=== PATIENT | female | born 1935 | race Caucasian/White ===

== ENCOUNTER 2020-09-15 07:47 | Outpatient (CLI) | payer MEDICARE, SELFPAY ==
--- NOTE | 2020-09-15 07:57 | USCV_ITS ---
Gibson Guillen Age: 85 Gender: F : 1935 Exam Date: 09/15/2020 08:12 Ordering Phys: Thomas Philippe MD Technologist: Mia Campos [place] [facility] [place]: MUR[place]UR BP: 140 / 60 HR: 64 Rhythm: Sinus Technical Quality: Technically difficult study MEASUREMENTS (Male / Female) Normal Values 2D ECHO LV Diastolic Diameter PLAX 3.1 cm 4.2 - 5.9 / 3.9 - 5.3 cm LV Systolic Diameter PLAX 1.7 cm IVS Diastolic Thickness 1.3 cm 0.6 - 1.0 / 0.6 - 0.9 cm IVS Systolic Thickness 1.9 cm LVPW Diastolic Thickness 1.5 cm 0.6 - 1.0 / 0.6 - 0.9 cm LVPW Systolic Thickness 2.2 cm LVOT Diameter 2.0 cm LV Ejection Fraction 2D Teich 76.7 % LV Ejection Fraction MOD 2C 71.1 % LV Ejection Fraction 2C AL 71.1 % LA Diameter 3.5 cm LA Width 3.1 cm LA Height 3.0 cm RA Width 3.0 cm RA Height 3.3 cm Aorta at Sinotubular Diameter 2.8 cm DOPPLER AV Peak Velocity 141.0 cm/s LVOT Peak Velocity 135.0 cm/s AV Area Cont Eq vti 2.8 cm squared AV Area Cont Eq pk 3.0 cm squared MV Peak Velocity 156.0 cm/s MV Area PHT 2.2 cm squared Mitral E to A Ratio 0.6 MV E' Velocity 47.0 cm/s Mitral E to MV E' Ratio 14.2 Mitral E to LV E' Lateral Ratio 19.4 Mitral E to LV E' Septal Ratio 11.3 TR Peak Velocity 212.8 cm/s TR Peak Gradient 18.1 mmHg TR Mean Velocity 151.4 cm/s TR Mean Gradient 10.2 mmHg TR Velocity Time Integral 57.4 cm Right Atrial Pressure 3.0 mmHg Pulmonary Artery Systolic Pressu 21.1 mmHg PV Peak Velocity 123.0 cm/s RV Acceleration Time 0.2 s RV Ejection Time 0.3 s RV AcT/ET 0.5 FINDINGS Left Ventricle Normal left ventricular cavity size. Normal left ventricular systolic function. Left ventricular ejection fraction is estimated at 55%. Grade I/IV diastolic dysfunction (abnormal relaxation filling pattern), normal to mildly elevated filling pressures. Right Ventricle Right ventricle not well visualized. RVSP could not be calculated due to incomplete tricuspid regurgitation velocity profile. Right Atrium Right atrium not well visualized. Left Atrium The left atrium is normal in size. Mitral Valve Severely thickened mitral valve. Severe mitral annular calcification. No mitral valve stenosis. Trace mitral valve regurgitation. Aortic Valve Severe aortic valve calcification. Mild aortic valve stenosis, mean gradient 5.2 mmHg, PATRICIA 2.8 cm squared. No aortic valve regurgitation. Tricuspid Valve Tricuspid valve not well visualized. Pulmonic Valve Pulmonic valve not well visualized. Pericardium Normal pericardium without effusion. Aorta Normal ascending aorta dimension. CONCLUSIONS 1-Normal left ventricular cavity size. Normal left ventricular systolic function. Left ventricular ejection fraction is estimated at 55%. Grade I/IV diastolic dysfunction (abnormal relaxation filling pattern), normal to mildly elevated filling pressures. 2-Right ventricle not well visualized. RVSP could not be calculated due to incomplete tricuspid regurgitation velocity profile. 3-Severely thickened mitral valve. Severe mitral annular calcification. No mitral valve stenosis. Trace mitral valve regurgitation. 4-Severe aortic valve calcification. Mild aortic valve stenosis, mean gradient 5.2 mmHg, PATRICIA 2.8 cm squared. No aortic valve regurgitation. 5-There is no pericardial effusion. 6-There are no prior echocardiogram studies to compare. Kristian Ac MD (Electronically Signed) Final Date: 16 September 2020 22:20 S
== END 2020-09-15 07:48 | disposition home or self-care (01) ==
PROVIDERS: PCP Family Medicine; Visit Provider Family Medicine
DX: R01.1 Cardiac murmur, unspecified (principal); I08.0 Rheumatic disorders of both mitral and aortic valves
CPT/HCPCS: 93306

== ENCOUNTER 2022-05-20 21:38 | Emergency (ER) | payer MEDICARE, SELFPAY ==
[2022-05-20] VITALS (10 sets, daily range): BP systolic 151–193; BP diastolic 79–131; PULSE 79–98; RESP 16–25; TEMP 37.1; O2SAT 95–99; BMI 21.6
--- NOTE | 2022-05-20 21:47 | ECG_ITS ---
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 Measurements Intervals [place] Rate: 85 P: 147 IL: 236 QRS: -30 QRSD: 121 T: 153 QT: 411 QTc: 490 Interpretive Statements SINUS RHYTHM WITH FIRST DEGREE AV BLOCK LEFT ATRIAL ENLARGEMENT [-0.15mV P-WAVE IN V1/V2] BORDERLINE LEFT AXIS DEVIATION [QRS AXIS < -20] POSSIBLE RIGHT VENTRICULAR CONDUCTION DELAY [RSR (QR) IN V1/V2] POSSIBLE LEFT VENTRICULAR HYPERTROPHY [VOLTAGE CRITERIA PLUS LAE OR QRS WIDENING] ST DEVIATION AND MARKED T-WAVE ABNORMALITY, CONSIDER LATERAL ISCHEMIA [-0.5+ mV T-WAVE IN I/aVL/V5/V6] Compared to ECG 05/02/2018 19:37:20 Ectopic atrial rhythm now present Incomplete right bundle-branch block no longer present Left anterior fascicular block no longer present ST (T wave) deviation no longer present Myocardial infarct finding no longer present Electronically Signed On 05-20-2022 23:38:56 CDT by Raulito Robert M.D. [id number]
[2022-05-20 21:59] LABS: Basophils % 0.3 %; Eosinophils # 0.1 10^3/uL (0.0-0.8); Eosinophils % 0.5 %; Hematocrit 44.1 % (37.0-47.0); Lymphocytes # 1.2 10^3/uL (0.8-4.8); Lymphocytes % 11.2 %; Mean Corpuscular HGB Conc 31.7 g/dL (30.0-36.0); Mean Corpuscular Hemoglobin 25.5 pg (28.0-34.0); Mean Corpuscular Volume 80.5 fl (81-99); Mean Platelet Volume 11.7 fL (7.4-10.4); Monocytes # 0.4 10^3/uL (0.2-0.9); Monocytes % 4.1 %; Neutrophils # 8.67 10^3/uL (1.8-7.7); Neutrophils % 83.3 %; Nucleated Red Blood Cells % 0 %; Platelet Count 223 10^3/cmm (130-400); Red Blood Count 5.48 10^6/uL (4.1-5.3); Red Cell Distribution Width 15.3 % (12.1-15.1); White Blood Count 10.4 10^3/uL (4.0-10.0)
[2022-05-20] MEDS: sodium chloride 0.9% 1,000 ML 999 ML IV (22:01)
[2022-05-20] MEDS: ondansetron 2 mg/ML SDV 2 mL 4 MG IVP (22:01)
--- NOTE | 2022-05-20 22:01 | ED_ITS ---
HPI - Nausea/Vomiting/Diarrhea General: Chief complaint: Nausea/Vomiting/Diarrhea Stated complaint: N/V Time Seen by Provider: 05/20/22 21:42 Source: patient and EMS Mode of arrival: EMS Limitations: no limitations History of Present Illness: 87-year-old female who states she has been sick throughout the day states she had multiple episodes of nausea vomiting with some burning in her upper abdomen she denies any actual pain she states it last when she vomits. States she is feeling weak due to the vomiting denies any diarrhea she denies any worsening or improving factors. Associated nausea: Yes Associated symtoms: Reports nausea; Denies chest pain, dysuria or headache(s) Review of Systems Const: Denies: fever(s), chills, body aches or change in appetite Eyes: Denies: blurry vision or eye discomfort ENMT: Denies: throat pain or dental pain Card: Denies: chest pain Resp: Denies: dyspnea GI: Reports: nausea and vomiting : Denies: dysuria Musc: Denies: neck pain or back pain Skin/Breast: Denies: rash Neuro: Denies: headache(s) Psych: Denies: depression Sincere/Lymph: Denies: easy bruising All/Imm: Denies: urticaria PFSH ED PFSH: Social History (Updated 05/20/22 @ 22:01 by Rock Matt MD) Substance/Drug Use: never Physical Exam Const: COMMON NORMALS: no acute distress, patient oriented x3 and healthy appearing HENMT: COMMON NORMALS: normocephalic and atraumatic HEAD & SCALP: normocephalic and atraumatic Eye: COMMON NORMALS: Equal, round and reactive pupils present and EOMs intact bilaterally PUPIL: Yes Equal, round and reactive pupils present Neck/C-Spine: COMMON NORMALS: full ROM and supple Chest: COMMONS NORMALS: normal inspection of the chest and normal palpation of entire chest wall Resp: COMMON NORMALS: normal respiratory effort, No retractions, No use of accessory muscles and clear to auscultation bilaterally AUSCULTATION: clear to auscultation bilaterally Cardio: COMMON NORMALS: regular rate, regular rhythm and No murmurs present (Cardio) RATE: regular rate RHYTHM: regular rhythm GI: COMMON NORMALS: Normal to inspection, nondistended, normoactive bowel sounds present, Soft to palpation, non-tender and no masses PALPATION: Yes Soft to palpation Extremity: COMMON NORMALS: normal to inspection and full ROM Neuro: COMMON NORMALS: patient oriented x3, moves all extremities and no focal motor deficits Psych: COMMON NORMALS: mental status grossly normal, Normal thought process present and cooperative THOUGHT PROCESS: Normal thought process present Skin: COMMON NORMALS: no rashes or lesions noted and no wounds GENERAL SKIN EXAM: no rashes or lesions noted Course Vital Signs: Vital signs: Vital Signs Temperature 98.7 F 05/20/22 21:42 Pulse Rate 83 05/20/22 22:42 Respiratory Rate 20 H 05/20/22 22:42 Blood Pressure 158/79 05/20/22 22:42 Pulse Oximetry 97 05/20/22 22:42 Oxygen Delivery Me thod 05/20/22 21:42 MDM - Nausea/Vomiting/Diarrhea Medical Decision Making Patient presents here with vomiting she feels much improved here after Zofran she been able to tolerate liquids and fluids blood work here is all normal she is stable for discharge at this time her abdominal exam here is benign no signs of acute surgical abdomen she is to follow-up with her PCP and return if worsening. Lab Data 05/20/22 21:54 05/20/22 21:54 Radiology Impressions Chest X-Ray 05/20/22 22:03 IMPRESSION: No acute findings. Laboratory Results WBC 10.4 10^3/uL (4.0-10.0) H 05/20/22 21:54 RBC 5.48 10^6/uL (4.1-5.3) H 05/20/22 21:54 Hgb 14.0 g/dL (11.5-15.3) 05/20/22 21:54 Hct 44.1 % (37.0-47.0) 05/20/22 21:54 MCV 80.5 fl (81-99) L 05/20/22 21:54 MCH 25.5 pg (28.0-34.0) L 05/20/22 21:54 MCHC 31.7 g/dL (30.0-36.0) 05/20/22 21:54 RDW 15.3 % (12.1-15.1) H 05/20/22 21:54 Plt Count 223 10^3/cmm (130-400) 05/20/22 21:54 MPV 11.7 fL (7.4-10.4) H 05/20/22 21:54 Neut % (Auto) 83.3 % 05/20/22 21:54 Lymph % (Auto) 11.2 % 05/20/22 21:54 [place] % (Auto) 4.1 % 05/20/22 21:54 Eos % (Auto) 0.5 % 05/20/22 21:54 Baso % (Auto) 0.3 % 05/20/22 21:54 Neut # (Auto) 8.67 10^3/uL (1.8-7.7) H 05/20/22 21:54 Lymph # (Auto) 1.2 10^3/uL (0.8-4.8) 05/20/22 21:54 [place] # (Auto) 0.4 10^3/uL (0.2-0.9) 05/20/22 21:54 Eos # (Auto) 0.1 10^3/uL (0.0-0.8) 05/20/22 21:54 Baso # (Auto) 0.0 10^3/uL (0.0-0.1) 05/20/22 21:54 Nucleated RBC % (auto) 0 % 05/20/22 21:54 Nucleated RBCs # 0.0 /100WBC 05/20/22 21:54 Sodium 127 mmol/L (136-145) L 05/20/22 21:54 Potassium 4.2 mmol/L (3.5-5.1) 05/20/22 21:54 Chloride 86 mmol/L (98-107) L 05/20/22 21:54 Carbon Dioxide 26 mmol/L (22-29) 05/20/22 21:54 Anion Gap 19.2 (5-19) H 05/20/22 21:54 BUN 17 mg/dL (8-23) 05/20/22 21:54 Creatinine 1.1 mg/dL (0.5-0.9) H 05/20/22 21:54 GFR Calculation Not Reportable 05/20/22 21:54 Glucose 143 mg/dL (65-115) H 05/20/22 21:54 Calculated Osmolality 268 mOsm/kg (285-295) L 05/20/22 21:54 Calcium 10.6 mg/dL (8.5-10.5) H 05/20/22 21:54 Total Bilirubin 0.5 mg/dL (0.15-1.2) 05/20/22 21:54 AST 26 U/L (0-32) 05/20/22 21:54 ALT 11 U/L (0-33) 05/20/22 21:54 Alkaline Phosphatase 82 U/L (35-105) 05/20/22 21:54 Total Protein 8.4 g/dL (6.6-8.7) 05/20/22 21:54 Albumin 4.7 g/dL (3.5-5.2) 05/20/22 21:54 Globulin 3.7 g/dL (1.3-4.6) 05/20/22 21:54 Lipase 34 U/L (13-60) 05/20/22 21:54 Urine Color Light yellow (Yellow) 05/20/22 22:50 Urine Appearance Clear (CLEAR) 05/20/22 22:50 Urine pH 8 (5-7) H 05/20/22 22:50 Ur Specific [place] 1.015 (1.005-1.030) 05/20/22 22:50 Urine Protein Neg (Negative) 05/20/22 22:50 Urine Glucose (UA) Norm (Normal) 05/20/22 22:50 Urine Ketones Negative (Negative) 05/20/22 22:50 Urine Blood Neg (Negative) 05/20/22 22:50 Urine Nitrate Negative (Negative) 05/20/22 22:50 Urine Bilirubin Neg (Negative) 05/20/22 22:50 Prot Sulfosalicylic Acd Negative (Negative) 05/20/22 22:50 Urine Urobilinogen Neg mg/dL (Negative) 05/20/22 22:50 Ur Leukocyte Esterase Negative (Negative) 05/20/22 22:50 Discharge Plan Discharge Patient Disposition: Home Clinical Impression: Vomiting Prescriptions: New ondansetron 4 mg tablet,disintegrating 4 mg PO Q6H PRN (Reason: nausea and vomiting) Qty: 14 0RF Discharge Orders: Discharge ED (Routine); Ordered 05/20/22 Ordered By: Rock Matt Referrals: Thomas Philippe MD [Primary Care Provider] - 1-3 days Discharge Diet: Advance as tolerated Discharge Activity: Resume usual activity Patient Instructions: Acute Nausea and Vomiting (ED) Coding Level of Care Code ED Instructional Design Specialist for Esteban Miller
--- NOTE | 2022-05-20 22:03 | XRR_ITS ---
PROCEDURE INFORMATION: Exam: XR Chest Exam date and time: 05/20/2022 10:07 PM Age: 87 years old Clinical indication: Other: Vomitting; Additional info: Vomiting TECHNIQUE: Imaging protocol: Radiologic exam of the chest. Views: 1 view. COMPARISON: CR XR chest 2V* [id number] 06/04/2020 12:26 PM FINDINGS: Tubes, catheters and devices: Stimulator lead unchanged over the midthoracic spine. Lungs: Minimal atelectasis in the left lung base. The lungs are otherwise clear. Pleural spaces: Unremarkable. No pleural effusion. No pneumothorax. Heart/Mediastinum: Unremarkable. No cardiomegaly. Diaphragm: Mild chronic elevation of the left diaphragm. Bones/joints: Thoracolumbar scoliosis. C-spine fusion hardware. Degenerative right shoulder. XR/XR chest 1V portable [id number] IMPRESSION: No acute findings.
[2022-05-20 22:18] LABS: Alanine Aminotransferase 11 U/L (0-33); Albumin Level 4.7 g/dL (3.5-5.2); Alkaline Phosphatase 82 U/L (35-105); Anion Gap 19.2 (5-19); Aspartate Amino Transferase 26 U/L (0-32); Blood Urea Nitrogen 17 mg/dL (8-23); Calcium 10.6 mg/dL (8.5-10.5); Carbon Dioxide 26 mmol/L (22-29); Chloride 86 mmol/L (98-107); Globulin 3.7 g/dL (1.3-4.6); Glucose 143 mg/dL (65-115); Lipase 34 U/L (13-60); Osmolality Calculated 268 mOsm/kg (285-295); Potassium 4.2 mmol/L (3.5-5.1); Sodium 127 mmol/L (136-145); Total Bilirubin 0.5 mg/dL (0.15-1.2); Total Protein 8.4 g/dL (6.6-8.7)
[2022-05-20 22:58] LABS: Add Urine Microscopic? NO; Charge for UA Resulting for Rev
[2022-05-20 23:03] LABS: Bilirubin Urine Neg (Negative); Blood Urine Neg (Negative); Glucose Urine UA Norm (Normal); Ketones Urine Negative (Negative); Leukocyte Esterase Urine Negative (Negative); Nitrate Urine Negative (Negative); Protein Urine Neg (Negative); Specific Gravity, Urine 1.015 (1.005-1.030); Sulfosalicylic Acid Urine Negative (Negative); Urine Appearance Clear (CLEAR); Urine Color Light yellow (Yellow); Urobilinogen Urine Neg (Negative); pH Urine 8 (5-7)
[2022-05-20] MEDS: hyDRALAzine 20 mg/mL INJ 1 mL 10 MG IVP (23:09)
[2022-05-20] MEDS: HYDROcodone-acetaminophen 7.5-325 mg Tablet 1 TAB PO (23:35)
[2022-05-20] MEDS: ondansetron 4 MG Tablet PO (23:35)
== END 2022-05-20 23:43 | disposition home or self-care (01) ==
PROVIDERS: Emergency Provider Emergency Medicine; PCP Family Medicine
DX: R11.11 Vomiting without nausea (principal)
CPT/HCPCS: 71045; 80053; 81003; 83690; 85025; 93005; 96374; 96375; 99285; J0360; J2405; J7030; Q0162

== ENCOUNTER 2022-05-29 16:16 | Inpatient (IN) | payer MEDICARE, SELFPAY ==
[2022-05-29 16:21] VITALS: PULSE 76; TEMP 36.6; O2SAT 97; BMI 21.6
[2022-05-29 17:21] LABS: Basophils # 0.1 10^3/uL (0.0-0.1); Basophils % 0.5 %; Eosinophils # 0.2 10^3/uL (0.0-0.8); Eosinophils % 1.7 %; Hematocrit 39.7 % (37.0-47.0); Hemoglobin 12.4 g/dL (11.5-15.3); Lymphocytes # 1.4 10^3/uL (0.8-4.8); Lymphocytes % 14.3 %; Mean Corpuscular HGB Conc 31.2 g/dL (30.0-36.0); Mean Corpuscular Hemoglobin 25.6 pg (28.0-34.0); Mean Platelet Volume 10.9 fL (7.4-10.4); Monocytes # 1.1 10^3/uL (0.2-0.9); Monocytes % 10.8 %; Neutrophils # 7.13 10^3/uL (1.8-7.7); Neutrophils % 71.6 %; Nucleated Red Blood Cells % 0 %; Platelet Count 227 10^3/cmm (130-400); Red Blood Count 4.84 10^6/uL (4.1-5.3); Red Cell Distribution Width 15.5 % (12.1-15.1)
[2022-05-29 17:55] LABS: Alanine Aminotransferase 16 U/L (0-33); Albumin Level 4.1 g/dL (3.5-5.2); Alkaline Phosphatase 80 U/L (35-105); Anion Gap 14.1 (5-19); Aspartate Amino Transferase 29 U/L (0-32); Blood Urea Nitrogen 22 mg/dL (8-23); Calcium 9.2 mg/dL (8.5-10.5); Carbon Dioxide 29 mmol/L (22-29); Chloride 85 mmol/L (98-107); Glucose 94 mg/dL (65-115); Lipase 30 U/L (13-60); Osmolality Calculated 261 mOsm/kg (285-295); Potassium 4.1 mmol/L (3.5-5.1); Sodium 124 mmol/L (136-145); Total Bilirubin 0.3 mg/dL (0.15-1.2); Total Protein 7.1 g/dL (6.6-8.7)
--- NOTE | 2022-05-29 18:50 | CTR_ITS ---
PROCEDURE INFORMATION: Exam: CT Abdomen And Pelvis With Contrast Exam date and time: 05/29/2022 7:07 PM Age: 87 years old Clinical indication: Abdominal pain; Patient HX: PT C/O low abd pain with diarrhea x 1 week; Additional info: Abd pain diarrhea TECHNIQUE: Imaging protocol: Computed tomography of the abdomen and pelvis with contrast. Radiation optimization: All CT scans at this facility use at least one of these dose optimization techniques: automated exposure control; mA and/or kV adjustment per patient size (includes targeted exams where dose is matched to clinical indication); or iterative reconstruction. Contrast material: OMNI 350; Contrast volume: 75 ml; Contrast route: INTRAVENOUS (IV); REPORTING DATA: Count of CT and Cardiac NM exams in prior 12 months: This patient has received 0 known CTs and 0 known cardiac nuclear medicine studies in the 12 months prior to the current study. COMPARISON: CR (CHEST, ) 05/20/2022 10:07 PM RADIATION DOSE METRICS: Total DLP (mGy-cm): 383.27 FINDINGS: Tubes, catheters and devices: A stimulator device is implanted in the subcutaneous soft tissues of the left lower lumbar region with leads extending posterior to the thoracic canal. Lungs: There are chronic changes at the lung bases. Liver: Normal. No mass. Gallbladder and bile ducts: Gallbladder is compressed in regions by adjacent stool filled large bowel loops. Pancreas: Normal. No ductal dilation. Spleen: Normal. No splenomegaly. Adrenal glands: Normal. No mass. Kidneys and ureters: Normal. No hydronephrosis. Stomach and bowel: Colonic constipation is present. There is a large amount of stool in the rectal vault raising concern for fecal impaction. Rectal mucosal thickening. Appendix: No evidence of appendicitis. Intraperitoneal space: Unremarkable. No free air. No significant fluid collection. Vasculature: There are calcifications in the aortic and mitral valves. Multi-vessel atherosclerotic disease. Lymph nodes: Unremarkable. No enlarged lymph nodes. Urinary bladder: Unremarkable as visualized. Reproductive: Unremarkable as visualized. Bones/joints: There are severe degenerative changes in the visualized spine. Chronic appearing compression deformities of the T12 and L1 vertebra. There is a transitional lumbosacral vertebra designated S1 for the purposes of this study. Status post right total hip replacement. There is resultant artifact obscuring adjacent structures. Moderate lower thoracic/upper lumbar levoscoliosis. Soft tissues: Unremarkable. CT/CT abdomen pelvis w con* [id number] IMPRESSION: 1. Colonic constipation with possible fecal impaction. 2. Rectal mucosal thickening. This can be seen with a nonspecific proctitis. Follow-up to exclude neoplasm as clinically warranted.
--- NOTE | 2022-05-29 18:50 | ED_ITS ---
HPI - Nausea/Vomiting/Diarrhea General: Chief complaint: Nausea/Vomiting/Diarrhea Stated complaint: abd pains Time Seen by Provider: 05/29/22 18:40 History of Present Illness: 87-year-old female seen a week ago for vomiting and diarrhea. Vomiting has resolved, but she is continued to have diarrhea. She has some left lower quadrant pain as well. No fever. She has some blood mixed in with the stool, because she says her hemorrhoids have been inflamed due to all the diarrhea. S he has a rash as well. She says that she gets cramping abdominal pain, and cannot control her bowels. Only belly surgery history is a hysterectomy years ago. MD elicited complaint: nausea, diarrhea and abdominal pain Pertinent past history: other Onset (ago): day(s) Description of vomiting: other Description of diarrhea: watery Associated nausea: Yes Associated abdominal pain: Yes Location of pain: Diffuse Radiation: other Pain consistency: intermittent Severity: moderate Quality: cramping Associated symtoms: Reports fatigue, anorexia, nausea and weakness (generalized); Denies altered mental status, chest pain, fevers/chills or headache(s) Review of Systems Const: Reports: fatigue Card: Denies: chest pain Resp: Denies: dyspnea, productive cough or non-productive cough GI: Reports: abdominal pain and nausea; Denies: melena Neuro: Denies: headache(s) Physical Exam Const: EXAM LIMITATIONS: no altered mental status HENMT: COMMON NORMALS: normocephalic and atraumatic HEAD & SCALP: normocephalic and atraumatic Eye: COMMON NORMALS: Equal, round and reactive pupils present and EOMs intact bilaterally PUPIL: Yes Equal, round and reactive pupils present Neck/C-Spine: GENERAL: Yes trachea midline Chest: CHEST: Yes Symmetrical chest wall rise Resp: COMMON NORMALS: normal respiratory effort, No use of accessory muscles and clear to auscultation bilaterally AUSCULTATION: clear to auscultation bilaterally Cardio: COMMON NORMALS: regular rate and regular rhythm RATE: regular rate RHYTHM: regular rhythm HEART SOUNDS: Murmur heart sound present GI: COMMON NORMALS: Normal to inspection, nondistended, normoactive bowel sounds present PALPATION: Yes Tenderness to palpation present (GI) Details: LLQ Extremity: NARRATIVE EXTREMITY EXAM: Ecchymosis with cyanosis of multiple toes bilaterally consistent with vascular disease. This is chronic. Neuro: ARTHUR COMA SCALE: document GCS findings [place] coma scale eye opening: Spontaneous [place] coma scale verbal response: Orientated [place] coma scale motor response: Obey commands Arthur coma scale total score: 15 Psych: COMMON NORMALS: mental status grossly normal and cooperative Procedures Rectal Disimpaction Time out performed rectal disimpaction: No Indication: fecal impaction Procedural Sedation: No Sedation/Analgesia: opioids Technique: manual disimpaction with gloved finger Result: unable to disimpact Patient Tolerated Procedure: well and no complications Complications: none Course Vital Signs: Vital signs: Vital Signs Temperature 97.9 F 05/29/22 16:21 Pulse Rate 81 05/29/22 19:30 Respiratory Rate 14 05/29/22 20:55 Blood Pressure 158/71 05/29/22 19:30 Pulse Oximetry 96 05/29/22 20:55 Oxygen Delivery Me thod Room Air 05/29/22 19:30 MDM - Nausea/Vomiting/Diarrhea Medical Decision Making Vitals are stable. CBC is normal. Sodium is 124 which is less than last week. Creatinine is 1.2. CT shows colonic constipation with fecal impaction and rectal mucosal thickening indicative of proctitis. Rectal disimpaction was performed, with minimal stool output. The patient tolerated well without com plication, however I would be unsuccessful. Stool felt on exam was soft. She will need repeated enemas for disimpaction given her proctitis. Stool studies will be sent for C. difficile and other enteric bacteria by PCR. Spoke with hospitalist. She will be admitted. Lab Data 05/29/22 17:13 05/29/22 17:13 Radiology Impressions Abdomen/Pelvis CT 05/29/22 18:50 IMPRESSION: 1. Colonic constipation with possible fecal impaction. 2. Rectal mucosal thickening. This can be seen with a nonspecific proctitis. Follow-up to exclude neoplasm as clinically warranted. Laboratory Results WBC 10.0 10^3/uL (4.0-10.0) 05/29/22 17:13 RBC 4.84 10^6/uL (4.1-5.3) 05/29/22 17:13 Hgb 12.4 g/dL (11.5-15.3) 05/29/22 17:13 Hct 39.7 % (37.0-47.0) 05/29/22 17:13 MCV 82.0 fl (81-99) 05/29/22 17:13 MCH 25.6 pg (28.0-34.0) L 05/29/22 17:13 MCHC 31.2 g/dL (30.0-36.0) 05/29/22 17:13 RDW 15.5 % (12.1-15.1) H 05/29/22 17:13 Plt Count 227 10^3/cmm (130-400) 05/29/22 17:13 MPV 10.9 fL (7.4-10.4) H 05/29/22 17:13 Neut % (Auto) 71.6 % 05/29/22 17:13 Lymph % (Auto) 14.3 % 05/29/22 17:13 [place] % (Auto) 10.8 % 05/29/22 17:13 Eos % (Auto) 1.7 % 05/29/22 17:13 Baso % (Auto) 0.5 % 05/29/22 17:13 Neut # (Auto) 7.13 10^3/uL (1.8-7.7) 05/29/22 17:13 Lymph # (Auto) 1.4 10^3/uL (0.8-4.8) 05/29/22 17:13 [place] # (Auto) 1.1 10^3/uL (0.2-0.9) H 05/29/22 17:13 Eos # (Auto) 0.2 10^3/uL (0.0-0.8) 05/29/22 17:13 Baso # (Auto) 0.1 10^3/uL (0.0-0.1) 05/29/22 17:13 Nucleated RBC % (auto) 0 % 05/29/22 17:13 Nucleated RBCs # 0.0 /100WBC 05/29/22 17:13 Sodium 124 mmol/L (136-145) L 05/29/22 17:13 Potassium 4.1 mmol/L (3.5-5.1) 05/29/22 17:13 Chloride 85 mmol/L (98-107) L 05/29/22 17:13 Carbon Dioxide 29 mmol/L (22-29) 05/29/22 17:13 Anion Gap 14.1 (5-19) 05/29/22 17:13 BUN 22 mg/dL (8-23) 05/29/22 17:13 Creatinine 1.2 mg/dL (0.5-0.9) H 05/29/22 17:13 GFR Calculation Not Reportable 05/29/22 17:13 Glucose 94 mg/dL (65-115) 05/29/22 17:13 Calculated Osmolality 261 mOsm/kg (285-295) L 05/29/22 17:13 Calcium 9.2 mg/dL (8.5-10.5) 05/29/22 17:13 Total Bilirubin 0.3 mg/dL (0.15-1.2) 05/29/22 17:13 AST 29 U/L (0-32) 05/29/22 17:13 ALT 16 U/L (0-33) 05/29/22 17:13 Alkaline Phosphatase 80 U/L (35-105) 05/29/22 17:13 Total Protein 7.1 g/dL (6.6-8.7) 05/29/22 17:13 Albumin 4.1 g/dL (3.5-5.2) 05/29/22 17:13 Globulin 3.0 g/dL (1.3-4.6) 05/29/22 17:13 Lipase 30 U/L (13-60) 05/29/22 17:13 Urine Color Colorless (Yellow) 05/29/22 19:30 Urine Appearance Clear (CLEAR) 05/29/22 19:30 Urine pH 7 (5-7) 05/29/22 19:30 Ur Specific [place] 1.005 (1.005-1.030) 05/29/22 19:30 Urine Protein Neg (Negative) 05/29/22 19:30 Urine Glucose (UA) Norm (Normal) 05/29/22 19:30 Urine Ketones Negative (Negative) 05/29/22 19:30 Urine Blood Neg (Negative) 05/29/22 19:30 Urine Nitrate Negative (Negative) 05/29/22 19:30 Urine Bilirubin Neg (Negative) 05/29/22 19:30 Urine Urobilinogen Norm mg/dL (Negative) 05/29/22 19:30 Ur Leukocyte Esterase Negative (Negative) 05/29/22 19:30 Discharge Plan Discharge Patient Disposition: Admitted As Inpatient Clinical Impression: Fecal impaction, Acute proctitis, Acute hyponatremia Condition: Stable Prescriptions: No Action ondansetron 4 mg tablet,disintegrating 4 mg PO Q6H PRN (Reason: nausea and vomiting) Qty: 14 0RF Referrals: Thomas Philippe MD [Primary Care Provider] - Coding Level of Care Code ED Community Service Representative for Esteban Miller
[2022-05-29] MEDS: sodium chloride 0.9% 1,000 ML 999 ML IV (19:05)
[2022-05-29] MEDS: iohexol 350 mg/mL 500 mL Btl (per mL) IV (19:08)
[2022-05-29 19:30] VITALS: BP 158/71; PULSE 81; RESP 16; O2SAT 97
[2022-05-29 19:38] LABS: Add Urine Microscopic? NO; Charge for UA Resulting for Rev
[2022-05-29 19:48] LABS: Bilirubin Urine Neg (Negative); Blood Urine Neg (Negative); Glucose Urine UA Norm (Normal); Ketones Urine Negative (Negative); Leukocyte Esterase Urine Negative (Negative); Nitrate Urine Negative (Negative); Protein Urine Neg (Negative); Specific Gravity, Urine 1.005 (1.005-1.030); Urine Appearance Clear (CLEAR); Urine Color Colorless (Yellow); Urobilinogen Urine Norm (Negative); pH Urine 7 (5-7)
[2022-05-29 20:55] VITALS: RESP 14; O2SAT 96
[2022-05-29] MEDS: fentaNYL 50 mcg/mL INJ 2mL IVP (20:55)
--- NOTE | 2022-05-29 21:09 | P.HP_ITS ---
Providers/Chief Complaint Primary Care Provider: Thomas Philippe MD Chief Complaint: abd pains History of Present Illness Gibson Guillen is a 87 year old female with past medical history of hyperlipidemia, hypertension, peripheral arterial disease never been a smoker presented to the hospital today feeling generally ill. She said that she has been having diarrhea for the last week and has been vomiting. She says the diarrhea is so bad that she is incontinent of stool. She feels miserable. She states she is on laxative pills at home that she takes daily. She says MiraLAX does not really help. She says she eats canned food at home however has not noticed any can to be bulging. Does not use oxygen at home. Not a cigarette smoker. States usually gets around with a walker and has help from neighbor or daughter who comes over when needed. Otherwise considers self healthy. States she has had chronic ulcers on her toes bilaterally and has been told in the past that she has poor circulation. Does not really give any further details on that. She is somewhat of a poor historian. Does not know her home medications at this time. She is alert oriented x3. She came into the ER on 20 May for vomiting and she was given Zofran and was able to tolerate liquids abdominal exam was benign and therefore will discharge home. She returns today to the ER for similar complaints. Denies any blood in stool. She gets she gets cramping abdominal pain. In the ER blood pressure 158/71, respiratory 14, pulse 81, tem perature 97.9, saturating 96% on room air. CT abdomen pelvis shows colonic constipation with possible fecal impaction. Rectal mucosal thickening present this can be seen with a nonspecific proctitis. Patient was manually disimpacted in the ER by ER physician. He was able to break up the stool to some extent however was not very successful. Multiple active enema was ordered. Stool studies sent for C. difficile, culture ova parasite screen. WBC 10.0, hemoglobin 12.4, platelet 327, sodium 124, potassium 4.1, chloride 85, creatinine 1.2, UA negative. Medications/Allergies Home Medications Medication Instructions Recorded Confirmed Last Taken Type ondansetron 4 mg disintegrating 4 mg PO Q6H PRN nausea and 05/20/22 Unknown Rx tablet vomiting #14 tabs Allergies Allergy/AdvReac Type Severity Reaction Status Date / Time No Known Allergies Allergy Verified 05/29/22 16:21 Vitals/I&O/Wt Last Vital Signs Temp 97.9 F 05/29/22 16:21 Pulse 81 05/29/22 19:30 Resp 14 05/29/22 20:55 BP 158/71 05/29/22 19:30 Pulse Ox 96 05/29/22 20:55 O2 Del Method Room Air 05/29/22 19:30 Weight last 48 hrs Weight 58.967 kg Physical Exam Narrative: General: Alert oriented x3, patient seen laying in bed in no acute distress appearing comfortable. HEENT: Normocephalic, atraumatic, EOMI, breathing room air. Cardio: Regular rate rhythm, normal S1-S2 Respiratory: Clear to auscultation bilaterally no wheezes no rhonchi GI: Abdomen soft, mildly tender to palpation all 4 quadrants, no guarding present no rebound tenderness, does appear slightly distended, bowel sounds + Behavior: Appropriate and cooperative Extremities: No edema bilateral lower extremities. Right foot forefoot and toes very erythematous extending up to all metatarsals. Few ulcers present and a small puncture wound present on plantar surface big toe. Left foot toes appear dusky and slightly cyanotic which she states is usually how they are. 3 toes out of 5 have ulcers present on dorsal surfaces covered with Band-Aid. Anal area has erythema and skin breakdown due to diarrhea Data 05/30/22 02:05 05/30/22 02:05 A&P Assessment and plan (1) Fecal impaction: (2) Acute proctitis: (3) Acute hyponatremia: (4) PAD (peripheral artery disease): (5) Foot ulcer: (6) Dusky feet: (7) Hypertension: (8) Hyperlipidemia: (9) Nausea and vomiting: (10) Cellulitis: Plan #Fecal impaction, possible proctitis #Nausea vomiting #Chronic constipation #Diarrhea possibly secondary to infection versus infection #Hypertension #Hyperlipidemia #Generalized weakness #Hyponatremia #Dehydration #Cellulitis right foot #Peripheral arterial disease #Cyanotic toes with ulcers ? Patient disimpacted in ER. Will give one-time milk of molasses enema to hopefully resolve the impaction. ? Check C. difficile, stool culture, stool for ova parasite ? Zofran for nausea as needed every 6 hours ? Hydralazine 5 IV every 4 hours as needed for systolic blood pressure greater than 180 ? Patient's home medications will need to be confirmed from her pharmacy in a.m. ? Placed on normal saline 75 cc/h ? Check serum osmolality, urine osmolality, urine sodium. I do suspect her hyponatremia is due to dehydration. Hopefully will improve with fluids. ? We will place on IV Unasyn and doxycycline for cellulitis ? Check CT foot right and left foot rule out osteomyelitis ? Consult podiatry ? Creatinine elevated at 1.2. We will hold off on contrast -Confirm home medications from pharmacy ? EKG did not show acute ischemic changes ? N.p.o. May consider starting on clear liquids in a.m. - Desitin barrier cream for anal area Full code. SCDs for DVT prophylaxis, heparin subcu PT Attestations Medical Necessity Statement*: Requires greater than 2 midnight stay for management of constipation, proctitis diarrhea, cellulitis Other Coding Information Focused coding review requested Diagnoses Fecal impaction K56.41 Acute proctitis K62.89 Acute hyponatremia E87.1 PAD (peripheral artery disease) I73.9 Foot ulcer L97.509 Dusky feet R23.8 Hypertension I10 Hyperlipidemia E78.5 Nausea and vomiting R11.2 Cellulitis L03.90
[2022-05-29 22:30] VITALS: BP 179/75; PULSE 80; RESP 18; O2SAT 100
[2022-05-29 23:00] VITALS: BP 174/92; O2SAT 98
[2022-05-29 23:14] VITALS: BP 173/89; PULSE 84; RESP 16; TEMP 36.8; O2SAT 96
[2022-05-29] MEDS: heparin 5,000 unit/mL INJ 1 mL 5000 UNIT SUBCUT (23:36)
[2022-05-29] MEDS: pantoprazole 40 mg SDV IVP (23:38)
[2022-05-29] MEDS: sodium chloride 0.9% 1,000 ML 75 ML IV (23:41)
[2022-05-29 23:50] LABS: Procalcitonin 0.26 ng/mL (0-0.5)
[2022-05-29 23:51] LABS: Thyroid Stimulating Hormone 1.25 uIU/mL (0.27-4.20)
[2022-05-30] VITALS (9 sets, daily range): BP systolic 133–188; BP diastolic 69–89; PULSE 60–87; RESP 14–18; TEMP 36.5–36.8; O2SAT 96–99
[2022-05-30] MEDS: ampicillin-sulbactam 3 GM in sodium chloride 0.9% (plus) 50 ML IV ×5 (00:32→22:48)
[2022-05-30] MEDS: doxycycline 100 MG in sodium chloride 0.9% (plus) 100 ML IV ×2 (00:53→13:19)
[2022-05-30 02:17] LABS: Basophils # 0.1 10^3/uL (0.0-0.1); Basophils % 0.5 %; Eosinophils # 0.2 10^3/uL (0.0-0.8); Eosinophils % 1.8 %; Hematocrit 40.9 % (37.0-47.0); Hemoglobin 12.7 g/dL (11.5-15.3); Lymphocytes # 1.2 10^3/uL (0.8-4.8); Mean Corpuscular HGB Conc 31.1 g/dL (30.0-36.0); Mean Corpuscular Hemoglobin 25.8 pg (28.0-34.0); Mean Corpuscular Volume 83.1 fl (81-99); Mean Platelet Volume 11.1 fL (7.4-10.4); Monocytes # 1.2 10^3/uL (0.2-0.9); Monocytes % 12.7 %; Neutrophils % 70.6 %; Nucleated Red Blood Cells % 0 %; Platelet Count 206 10^3/cmm (130-400); Red Blood Count 4.92 10^6/uL (4.1-5.3); Red Cell Distribution Width 15.6 % (12.1-15.1); White Blood Count 9.5 10^3/uL (4.0-10.0)
[2022-05-30 02:36] LABS: Alanine Aminotransferase 15 U/L (0-33); Albumin Level 3.8 g/dL (3.5-5.2); Alkaline Phosphatase 71 U/L (35-105); Anion Gap 14.9 (5-19); Aspartate Amino Transferase 26 U/L (0-32); Blood Urea Nitrogen 17 mg/dL (8-23); Calcium 9.2 mg/dL (8.5-10.5); Carbon Dioxide 27 mmol/L (22-29); Chloride 92 mmol/L (98-107); Globulin 3.1 g/dL (1.3-4.6); Glucose 89 mg/dL (65-115); Magnesium 1.5 mg/dL (1.7-2.3); Osmolality Calculated 271 mOsm/kg (285-295); Potassium 3.9 mmol/L (3.5-5.1); Sodium 130 mmol/L (136-145); Total Bilirubin 0.4 mg/dL (0.15-1.2); Total Protein 6.9 g/dL (6.6-8.7)
--- NOTE | 2022-05-30 05:53 | CTR_ITS ---
PROCEDURE INFORMATION: Exam: CT Right Lower Extremity Without Contrast, Foot Exam date and time: 05/30/2022 6:58 AM Age: 87 years old Clinical indication: Other: Red; Additional info: R/O infection TECHNIQUE: Imaging protocol: CT of the right lower extremity without contrast was performed. Exam focused on the foot. Radiation optimization: All CT scans at this facility use at least one of these dose optimization techniques: automated exposure control; mA and/or kV adjustment per patient size (includes targeted exams where dose is matched to clinical indication); or iterative reconstruction. REPORTING DATA: Count of CT and Cardiac NM exams in prior 12 months: This patient has received 2 known CTs and 0 known cardiac nuclear medicine studies in the 12 months prior to the current study. COMPARISON: No relevant prior studies available. RADIATION DOSE METRICS: Total DLP (mGy-cm): 129.77 FINDINGS: Bones/joints: Degenerative arthritis of the foot. No dominant focal lucent destructive process. No acute fracture. Soft tissues: Achilles tendon insertion calcification. Rather diffuse soft tissue edema or cellulitis. Likely an element of deep compartment soft tissue changes. No soft tissue gas. CT/CT foot RT wo con* [id number] IMPRESSION: 1. Diffuse superficial and likely partially deep compartment soft tissue edema or cellulitis. Significant limitation for assessment for abscess by the lack of contrast media. 2. No focal destructive process of bone although MRI would yield a higher level of diagnostic sensitivity and specificity for bone infection. 3. Generalized degenerative arthritis.
--- NOTE | 2022-05-30 05:53 | CTR_ITS ---
PROCEDURE INFORMATION: Exam: CT Left Lower Extremity Without Contrast, Foot Exam date and time: 05/30/2022 7:01 AM Age: 87 years old Clinical indication: Other: Red; Additional info: R/O infection TECHNIQUE: Imaging protocol: CT of the left lower extremity without contrast was performed. Exam focused on the foot. Radiation optimization: All CT scans at this facility use at least one of these dose optimization techniques: automated exposure control; mA and/or kV adjustment per patient size (includes targeted exams where dose is matched to clinical indication); or iterative reconstruction. REPORTING DATA: Count of CT and Cardiac NM exams in prior 12 months: This patient has received 2 known CTs and 0 known cardiac nuclear medicine studies in the 12 months prior to the current study. COMPARISON: No relevant prior studies available. RADIATION DOSE METRICS: Total DLP (mGy-cm): 129.84 FINDINGS: Bones/joints: Generalized mild degenerative arthritis. No acute fracture. No dominant focal bone destruction or abnormal sclerosis. Nonspecific focus of sclerosis navicular bone probably small bone island. Soft tissues: Diffuse superficial and partial deep compartment soft tissue edema or cellulitis. Achilles tendon insertion calcification. No soft tissue gas. Other findings: Partial motion degradation. Inability to assess for the presence of subtle abscess due to the lack of contrast media. CT/CT foot LT wo con* [id number] IMPRESSION: 1. Diffuse soft tissue edema or cellulitis. 2. Generalized degenerative arthritis. 3. For any clinical concern for bone infection or soft tissue abscess consider MRI without and with gadolinium.
[2022-05-30] MEDS: sodium chloride 0.9% 1,000 ML 75 ML IV (11:53)
[2022-05-30] MEDS: lactulose oral liq 20 gm/30 mL UDC 30 GM PO ×3 (11:58→15:32)
[2022-05-30] MEDS: heparin 5,000 unit/mL INJ 1 mL 5000 UNIT SUBCUT ×2 (11:58→22:48)
--- NOTE | 2022-05-30 12:26 | PM.PN ---
Subjective Subjective: Patient was seen and examined this morning, she had 1 small bowel movement this morning,she denied any nausea vomiting abdominal pain. Medications: Medication Review Details: Generic Name Dose Route Start Last Admin Trade Name Joss PRN Reason Stop Dose Admin Heparin Sodium (Po rcine) 5,000 unit 05/29/22 23:15 05/30/22 11:58 Heparin 5,000 Un it/Ml Inj 1 Ml SUBCUT 5,000 unit Q12H CARLO Administration Sodium Chloride 1,000 mls @ 75 ml s/hr 05/29/22 23:15 05/30/22 11:53 Sodium Chloride 0.9% IV 75 mls/hr .[id number] CARLO Administration Ampicillin Sodium/ Sulbactam 50 mls @ 100 mls/ hr 05/29/22 23:30 05/30/22 11:52 Sodium 3 gm/ Sod ium Chloride IV 100 mls/hr Q6H CARLO Administration Protocol Doxycycline Hyclat e 100 mg/ 100 mls @ 100 mls /hr 05/29/22 23:30 05/30/22 06:25 Sodium Chloride IV Infused Q12H CARLO Infusion Protocol Lactulose 30 gm 05/30/22 10:00 05/30/22 11:58 Lactulose Oral L iq 20 Gm/30 Ml Udc PO 30 gm Q2H CARLO Administration Pantoprazole Sodiu m 40 mg 05/29/22 23:15 05/29/22 23:38 Pantoprazole 40 Mg Sdv IVP 40 mg Q24H CARLO Administration Vitals/I&O/Wt Last Vital Signs Temp 97.7 F 05/30/22 08:00 Pulse 76 05/30/22 08:00 Resp 17 05/30/22 08:00 BP 133/69 05/30/22 08:00 Pulse Ox 99 05/30/22 08:00 O2 Del Method Room Air 05/30/22 04:00 O2 Flow Rate 1 05/29/22 23:00 05/29/22 05/30/22 05/30/22 22:59 06:59 14:59 Intake Total 1000 / 1000 150 / 1150 965 / 965 Output Total Balance 1000 / 1000 149 / 1149 965 / 965 Weight last 48 hrs Weight 58.967 kg Physical Exam Const: COMMON NORMALS: patient oriented x3 HENMT: COMMON NORMALS: normocephalic and atraumatic HEAD & SCALP: normocephalic and atraumatic Resp: COMMON NORMALS: clear to auscultation bilaterally EFFORT & INSPECTION: Yes symmetric chest movement AUSCULTATION: clear to auscultation bilaterally Cardio: COMMON NORMALS: regular rate, regular rhythm, S1 normal heart sound present, S2 normal heart sound present, No gallops present (Cardio), No murmurs present (Cardio), No rub (Cardio) and Peripheral pulses 2+ throughout RATE: regular rate RHYTHM: regular rhythm HEART SOUNDS: S1 normal heart sound present and S2 normal heart sound present PERIPHERAL PULSES: Peripheral pulses 2+ throughout GI: COMMON NORMALS: Normal to inspection, nondistended, normoactive bowel sounds present, Soft to palpation, non-tender, No hepatosplenomegaly present and no masses AUSCULTATION: Yes normoactive bowel sounds PALPATION: Yes Soft to palpation and Yes No hepatosplenomegaly present RECTAL EXAM: deferred Extremity: COMMON NORMALS: no clubbing, cyanosis or edema and no pedal edema NARRATIVE EXTREMITY EXAM: Bilateral lower extremity redness present. Neuro: COMMON NORMALS: patient oriented x3 Data 05/30/22 02:05 05/30/22 02:05 Micro: Microbiology 05/30/22 04:29 Enteric Pathogens (PCR) - Final Stool - Stool Aspirate C.difficile Toxin B Gene (PCR) - Final Occult Blood (FIT) - Final 05/30/22 04:29 Stool Lactoferrin - Final Stool 05/29/22 00:05 Blood Culture - Preliminary Blood SPECIMEN COLLECTED 05/29/22 00:00 Blood Culture - Preliminary Blood SPECIMEN COLLECTED A&P Assessment and plan (1) Fecal impaction: (2) Acute proctitis: (3) Acute hyponatremia: (4) PAD (peripheral artery disease): (5) Foot ulcer: (6) Dusky feet: (7) Hypertension: (8) Hyperlipidemia: (9) Nausea and vomiting: (10) Cellulitis: Plan 87-year-old female with past medical history of hypertension dyslipidemia, PAD, was admitted for the management of generalized illness, CT scan abdomen and pelvis done in the ER showed:Colonic constipation with possible fecal impaction.Rectal mucosal thickening. This can be seen with a nonspecific proctitis. Currently she is being managed for. #Chronic constipation with fecal impaction CT scan abdomen and pelvis done in the ER showed:Colonic constipation with possible fecal impaction.Rectal mucosal thickening. This can be seen with a nonspecific proctitis. Patient has received one-time enema with 1 small bowel movement. Currently she is on lactulose, GoLytely can be used. # proctitis: Currently she is on Unasyn #Diarrhea possibly overflow incontinence: Stool C. difficile PCR is negative Enteric bacterial panel by PCR negative #Hyponatremia: TSH 1.25 Random cortisol Random urine sodium Urine osmolality Serum osmolality Currently on IV hydration with normal saline Monitor serum sodium. Bilateral lower extremity cellulitis: Bilateral lower extremity CT scan foot: Cellulitis with degenerative arthritis, low suspicion for osteomyelitis, is limited study as has been done without contrast. Currently appropriately covered with Unasyn and doxycycline #History of hypertension; Continue losartan and hydrochlorothiazide #Hyperlipidemia Continue Lipitor #History of peripheral artery disease: No acute intervention at this time #Cyanotic toes with ulcers Full code. SCDs for DVT prophylaxis, heparin subcu Attestations Medical Necessity Statement*: Patient is to be in hospital management of significant constipation. Coding Level of Care Code 99715 Diagnoses Fecal impaction K56.41 Acute proctitis K62.89 Acute hyponatremia E87.1 PAD (peripheral artery disease) I73.9 Foot ulcer L97.509 Dusky feet R23.8 Hypertension I10 Hyperlipidemia E78.5 Nausea and vomiting R11.2 Cellulitis L03.90
[2022-05-30] MEDS: timolol 0.5% Op Soln 5 mL Btl 0.5 DROP EYE-BOTH (18:31)
[2022-05-30] MEDS: acetaminophen 325 mg Tablet 650 MG PO (19:28)
[2022-05-30] MEDS: pantoprazole 40 mg SDV IVP (22:48)
[2022-05-31] VITALS (9 sets, daily range): BP systolic 110–197; BP diastolic 53–94; PULSE 80–97; RESP 16–20; TEMP 36.4–36.9; O2SAT 98–100
[2022-05-31] MEDS: hyDRALAzine 20 mg/mL INJ 1 mL 5 MG IVP (00:38)
[2022-05-31] MEDS: sodium chloride 0.9% 1,000 ML 75 ML IV (00:40)
[2022-05-31] MEDS: doxycycline 100 MG in sodium chloride 0.9% (plus) 100 ML IV ×2 (00:40→12:11)
[2022-05-31] MEDS: ampicillin-sulbactam 3 GM in sodium chloride 0.9% (plus) 50 ML IV ×3 (04:43→17:46)
[2022-05-31 05:23] LABS: Basophils # 0.1 10^3/uL (0.0-0.1); Basophils % 0.6 %; Eosinophils # 0.2 10^3/uL (0.0-0.8); Eosinophils % 2.4 %; Hematocrit 41.5 % (37.0-47.0); Hemoglobin 12.9 g/dL (11.5-15.3); Lymphocytes # 0.9 10^3/uL (0.8-4.8); Lymphocytes % 11.1 %; Mean Corpuscular HGB Conc 31.1 g/dL (30.0-36.0); Mean Corpuscular Hemoglobin 25.7 pg (28.0-34.0); Mean Corpuscular Volume 82.8 fl (81-99); Mean Platelet Volume 11.4 fL (7.4-10.4); Monocytes # 0.8 10^3/uL (0.2-0.9); Monocytes % 9.8 %; Neutrophils # 5.93 10^3/uL (1.8-7.7); Nucleated Red Blood Cells % 0 %; Platelet Count 216 10^3/cmm (130-400); Red Blood Count 5.01 10^6/uL (4.1-5.3); Red Cell Distribution Width 15.9 % (12.1-15.1); White Blood Count 7.9 10^3/uL (4.0-10.0)
[2022-05-31 05:37] LABS: Alanine Aminotransferase 20 U/L (0-33); Alkaline Phosphatase 80 U/L (35-105); Anion Gap 17.1 (5-19); Aspartate Amino Transferase 61 U/L (0-32); Blood Urea Nitrogen 13 mg/dL (8-23); Carbon Dioxide 25 mmol/L (22-29); Chloride 94 mmol/L (98-107); Glucose 91 mg/dL (65-115); Osmolality Calculated 276 mOsm/kg (285-295); Potassium 3.1 mmol/L (3.5-5.1); Sodium 133 mmol/L (136-145); Total Bilirubin 0.4 mg/dL (0.15-1.2)
--- NOTE | 2022-05-31 06:35 | P.CONIM_ITS ---
Providers/Reason For Consult Consulting Physician/Specialty*: Derek Amador D.P.M. Reason for Consult*: Peripheral arterial disease Attending Physician: Bella Morales MD Primary Care Provider: Thomas Philippe MD History of Present Illness History of Present Illness Gibson Guillen is a 87 year old female presenting to the emergency department with fecal impaction, acute proptosis and acute hyponatremia. I was consulted for evaluation of her lower extremities due to underlying redness and sores to her toes. Patient is nondiabetic. No history of revascularization of lower extremities. Upon questioning she states that her fingers, nose and toes have transitioned through different colors of red, blue and white, she states that the blue discoloration can become dark. For the past 2 salomon she has noticed that her symptoms are more severe and that she developed small sores at the tips of her toes that are limited to breakdown of skin, she treats this with Band- Aids and Neosporin. She denies any infections to the toes that failed to heal. She is unaware of any diagnosis of Raynaud's phenomenon. She does not smoke. Patient denies any subjective nausea, vomiting, fever, chills, shortness of breath or chest pain. Review of Systems General: Reports: 10 or more systems reviewed and unremarkable except in HPI and below Const: Denies: fever(s) or chills Eyes: Denies: change in vision Card: Denies: chest pain or palpitations Resp: Denies: dyspnea or productive cough GI: Denies: abdominal pain, nausea or vomiting : Denies: flank pain Musc: Denies: extremity pain or extremity swelling Skin/Breast: Reports: erythema and sores; Denies: rash Neuro: Denies: numbness in extremities, sensory changes or frequent falls Psych: Denies: suicidal ideation Sincere/Lymph: Denies: easy bruising Medications/Allergies Home Medications Medication Instructions Recorded Confirmed Last Taken Type ondansetron 4 mg disintegrating 4 mg PO Q6H PRN nausea and 05/20/22 05/31/22 Unknown Rx tablet vomiting #14 tabs brimonidine 0.1 % eye drops 0.1 drp ophthalmic (eye) TID 05/30/22 05/30/22 05/30/22 12:12 History (Alphagan P) hydrochlorothiazide 25 mg tablet 25 mg PO DAILY 05/30/22 05/30/22 05/29/22 07:00 History latanoprost 0.005 % eye drops 0.005 drp ophthalmic (eye) BEDTIME 05/30/22 05/30/22 05/29/22 21:00 History losartan 25 mg tablet 25 mg PO DAILY 05/30/22 05/30/22 05/29/22 07:00 History meloxicam 7.5 mg tablet 7.5 mg PO DAILY 05/30/22 05/30/22 05/29/22 07:00 History omeprazole 40 mg capsule,delayed 40 mg PO DAILY 05/30/22 05/30/22 05/29/22 07:00 History release simvastatin 80 mg tablet 80 mg PO DAILY 05/30/22 05/30/22 05/29/22 07:00 History timolol maleate 0.5 % eye drops 1 drp ophthalmic (eye) BID 05/30/22 05/31/22 05/30/22 07:00 History metoprolol succinate 200 mg 200 mg PO DAILY 05/31/22 05/31/22 Unknown History tablet,extended release 24 hr metoprolol succinate 200 mg 200 mg PO DAILY 05/31/22 05/31/22 05/29/22 07:00 History tablet,extended release 24 hr tramadol 50 mg tablet 25 - 50 mg PO BID PRN Pain 05/31/22 05/31/22 05/29/22 07:00 History Allergies Allergy/AdvReac Type Severity Reaction Status Date / Time No Known Allergies Allergy Verified 05/29/22 16:21 Current Medications Generic Name Dose Route Start Last Admin Trade Name Joss PRN Reason Stop Dose Admin Acetaminophen 650 mg 05/29/22 23:13 05/30/22 19:28 Acetaminophen 325 Mg Tablet PO 650 mg Q6H PRN Administration Mild/Mod Pain Or Temp >/= 101 Amlodipine Besylate 10 mg 05/30/22 09:00 05/30/22 13:23 Amlodipine 10 Mg Tablet PO Not Given DAILY CARLO Heparin Sodium (Porcine) 5,000 unit 05/29/22 23:15 05/30/22 22:48 Heparin 5,000 Unit/Ml Inj 1 Ml SUBCUT 5,000 unit Q12H CARLO Administration Hydralazine HCl 5 mg 05/30/22 05:54 05/31/22 00:38 Hydralazine 20 Mg/Ml Inj 1 Ml IVP 5 mg Q4H PRN Administration HYPERTENSION Sodium Chloride 1,000 mls @ 75 mls/hr 05/29/22 23:15 05/31/22 00:40 Sodium Chloride 0.9% IV 75 mls/hr .[id number] CARLO Administration Ampicillin Sodium/Sulbactam 50 mls @ 100 mls/hr 05/29/22 23:30 05/31/22 05:18 Sodium 3 gm/ Sodium Chloride IV Infused Q6H CARLO Infusion Protocol Doxycycline Hyclate 100 mg/ 100 mls @ 100 mls/hr 05/29/22 23:30 05/31/22 01:59 Sodium Chloride IV Infused Q12H CARLO Infusion Protocol Pantoprazole Sodium 40 mg 05/29/22 23:15 05/30/22 22:48 Pantoprazole 40 Mg Sdv IVP 40 mg Q24H CARLO Administration Timolol Maleate 0.5 drop 05/30/22 18:00 05/30/22 18:31 Timolol 0.5% Op Soln 5 Ml Btl EYE-BOTH 0.5 drop BID CARLO Administration Vitals/I&O/Wt Last Vital Signs Temp 97.9 F 05/31/22 04:00 Pulse 96 05/31/22 04:00 Resp 19 H 05/31/22 04:00 BP 161/84 05/31/22 04:00 Pulse Ox 100 05/31/22 04:00 O2 Del Method Room Air 05/31/22 04:00 O2 Flow Rate 1 05/29/22 23:00 05/30/22 05/30/22 05/31/22 14:59 22:59 06:59 Intake Total 1015 / 1015 150 / 1165 1158.75 / 2323.75 Output Total 400 / 400 Balance 1015 / 1015 150 / 1165 758.75 / 1923.75 Weight last 48 hrs Weight 130 lb Physical Exam Narrative: GENERAL: Patient is alert and oriented ?3 and in no acute distress. The following is a focused bilateral lower extremity exam. VASCULAR: Dorsalis pedis palpable +2 left and right foot. Posterior tibial arteries palpable +2. Capillary refill time less than 3 seconds to the distal hallux bilaterally. Calf is supple and nontender proximally and distally. D ecreased pedal hair growth bilaterally. No pedal edema. Dependent rubor to the bilateral lower extremity involving the forefoot. NEUROLOGICAL: Protective sensation intact 10/10 sites, tested with [place] Sina monofilament to bilateral feet. DERMATOLOGICAL: Wound limited to breakdown of skin right second toe. Left second toe, third toe and fourth toe. Wounds did not have any erythema or pu rulent drainage. No proximal lymphangitic streaking. Webspaces 1 through 4 bilaterally are clean, dry and intact. MUSCULOSKELETAL: Muscle strength +5 in all 3 planes bilateral foot and ankle. No gross deformity or acute dislocation to the bilateral lower extremity. Data 05/31/22 04:26 05/31/22 04:26 Micro: Microbiology 05/29/22 00:05 Blood Culture - Preliminary Blood NEGATIVE TO DATE 05/29/22 00:00 Blood Culture - Preliminary Blood NEGATIVE TO DATE 05/30/22 04:29 Enteric Pathogens (PCR) - Final Stool - Stool Aspirate C.difficile Toxin B Gene (PCR) - Final Occult Blood (FIT) - Final 05/30/22 04:29 Stool Lactoferrin - Final Stool A&P Assessment and plan (1) Raynauds phenomenon: Qualifiers: Raynaud?s-associated gangrene presence: without gangrene Qualified Code(s): I73.00 - Raynaud's syndrome without gangrene (2) PAD (peripheral artery disease): Plan Patient examined and evaluated, findings and treatment options were discussed with patient at length. She has superficial wounds involving the right second toe and toes 2, 3, 4 left foot that are limited to breakdown of skin. Wounds are clinically stable, no deep structures exposed. No purulence, no erythema. Advised mupirocin ointment and Band-Aid dressing twice daily until healed. Leading differential diagnosis is Raynaud's phenomenon. With exposure to cold patient has transitioning colors of white, blue then red. At today's evaluation there was rubor likely due to reperfusion phase. I educated the patient on managing this condition this includes but not limited to avoiding nicotine, avoiding caffeine, proper clothing when exposed to cold, social stressors also contributing as a trigger. Her pedal pulses are palpable graded as +2, will order ABIs to further evaluate with waveforms, would be helpful to have TBI as well. Recommending a rheumatology panel looking for autoimmune Can follow-up outpatient with podiatry to establish care and treat any further wounds that may appear in the future associated with her condition. Consult Attestations Medical Necessity Statement: Peripheral arterial disease Coding Level of Care Code Acute Code for [facility] Diagnoses Raynauds phenomenon I73.00 Raynaud?s-associated gangrene presence: without gangrene PAD (peripheral artery disease) I73.9
[2022-05-31] MEDS: losartan 50 mg Tablet 25 MG PO (08:45)
[2022-05-31] MEDS: amlodipine 10 mg Tablet PO (08:45)
[2022-05-31] MEDS: hydroCHLOROthiazide 25 mg Tablet PO (08:45)
[2022-05-31] MEDS: pantoprazole DR 40 mg Tablet PO (08:45)
[2022-05-31] MEDS: atorvastatin 40 mg Tablet PO (08:45)
[2022-05-31] MEDS: timolol 0.5% Op Soln 5 mL Btl 0.5 DROP EYE-BOTH ×2 (08:46→17:44)
[2022-05-31] MEDS: morphine 4 mg/mL SDV 1 mL 2 MG IVP (08:54)
--- NOTE | 2022-05-31 09:01 | USCV_ITS ---
Gibson Guillen Age: 87 Gender: F : 1935 Exam Date: 05/31/2022 10:55 Ordering Phys: Derek Amador DPM Technologist: Simon Chappell [place] [facility] [place]: DIMINISHED PEDAL PULSE. RAYNAUDS RIGHT LEFT Brachial 198.00 mmHg Brachial 198.00 mmHg Pressure (mmHg) Waveform Pressure (mmHg) Waveform 220.00 COMPUTATIONAL GENETICIST 220.00 220.00 DPA 220.00 Pre-Exercise Toe Pressure 0.00 0.00 0.00 Pre-Exercise Toe/Brachial Index 0.00 FINDINGS NONCOMPRESSIBLE RT AND LT COMPUTATIONAL GENETICIST AND DPA Noncompressible ankle vessels bilaterally CONCLUSIONS Non compressible ankle vessels bilaterally suggesting extensive arterial sclerosis Toe pressures were not obtained? Dr Claus Daugherty MD [facility] (Electronically Signed) Final Date: 01 June 2022 09:11 S
--- NOTE | 2022-05-31 10:21 | PC.CHAP ---
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 [] Patient/Family/Request visit [] Outpatient visit [] Follow-up visit [] Physician referral [] Code/Alert [x] Routine visit [] Staff referral [] Actively dying [] Patient sleeping [] Family support [] [] Out of room [] Palliative care [] [] Receiving care in room [] Pre-surgical visit [] Trauma [] Long length of stay [] ICU visit [] Other: Relational/Emotional Strength [] Patient feels connected with others/family/visitors/staff [] Distress [] Loneliness/isolation [] Abandonment Spirituality of Patient [x] Person of Lexy [] Attends Mosque of their [place] [] Believes in Prayer [] Reads Bible or Synagogue materials [] There are Spiritual issues to be addressed Optical Dispenser Interventions [x] Prayer [] Active listening [] Non-anxious presence [] Spiritual/emotional support [] Crisis/trauma care [] Spiritual counseling [] Bereavement support [] Provided bereavement packet [] Provided Bible/devotional materials [] Provided toy/stuffed animal, coloring book to patient or family member [] Provided Communion [] Anointing/[place] [] Salvation [] Completed spiritual assessment [] Other: Impact on Illness or Injury [] Angry [] Fearful [] Anxious [] Often cries [] Exhaustion [] Unable to work [] Unable to attend sabianism [] Unable to walk/stand [] Unable to read [] Unable to drive [] Unable to eat/drink [] Unable to sleep [] Unable to be with family [] Patient intubated [] Other: Summary Time spent with patient 5 min
[2022-05-31] MEDS: heparin 5,000 unit/mL INJ 1 mL 5000 UNIT SUBCUT ×2 (11:53→22:18)
[2022-05-31] MEDS: TRAMadol 50 mg Tablet PO ×2 (12:10→23:59)
[2022-05-31] MEDS: acetaminophen 325 mg Tablet 650 MG PO (12:10)
--- NOTE | 2022-05-31 17:53 | PM.PN ---
Subjective Subjective: Patient has had multiple bowel movements today. Not diarrhea. States these are semisolid stools. She would like to try advancing her diet today. Started on clear liquids this morning with orders to advance as tolerated to a full liquid diet. Afebrile. Hemodynamically stable. Medications: Reviewed: Yes Medication Review Details: Generic Name Dose Route Start Last Admin Trade Name Kristoferq PRN Reason Stop Dose Admin Heparin Sodium (Po rcine) 5,000 unit 05/29/22 23:15 05/30/22 11:58 Heparin 5,000 Un it/Ml Inj 1 Ml SUBCUT 5,000 unit Q12H CARLO Administration Sodium Chloride 1,000 mls @ 75 ml s/hr 05/29/22 23:15 05/30/22 11:53 Sodium Chloride 0.9% IV 75 mls/hr .[id number] CARLO Administration Ampicillin Sodium/ Sulbactam 50 mls @ 100 mls/ hr 05/29/22 23:30 05/30/22 11:52 Sodium 3 gm/ Sod ium Chloride IV 100 mls/hr Q6H CARLO Administration Protocol Doxycycline Hyclat e 100 mg/ 100 mls @ 100 mls /hr 05/29/22 23:30 05/30/22 06:25 Sodium Chloride IV Infused Q12H CARLO Infusion Protocol Lactulose 30 gm 05/30/22 10:00 05/30/22 11:58 Lactulose Oral L iq 20 Gm/30 Ml Udc PO 30 gm Q2H CARLO Administration Pantoprazole Sodiu m 40 mg 05/29/22 23:15 05/29/22 23:38 Pantoprazole 40 Mg Sdv IVP 40 mg Q24H CARLO Administration Vitals/I&O/Wt Last Vital Signs Temp 97.6 F 05/31/22 16:00 Pulse 87 05/31/22 16:00 Resp 16 05/31/22 16:00 BP 149/81 05/31/22 16:00 Pulse Ox 100 05/31/22 11:35 O2 Del Method Room Air 05/31/22 11:35 O2 Flow Rate 1 05/29/22 23:00 05/31/22 05/31/22 05/31/22 06:59 14:59 22:59 Intake Total 1158.75 / 2323.75 390 / 390 1000 / 1390 Output Total 400 / 400 Balance 758.75 / 1923.75 390 / 390 1000 / 1390 Physical Exam Narrative: General: No acute distress, AO x3 HEENT: PERRLA, pupils bilaterally equal and reactive, pallors not present Chest: Normal vesicular breath sounds, no added sounds, equal good air entry bilaterally CVS: S1-S2 regular, no murmurs, no tachycardia, no gallops, no rubs Abdomen: Soft, nontender, no organomegaly, bowel sounds present Neuro: No focal deficits, no facial deformity, AO x3, power 5/5 in all limbs Data 05/31/22 04:26 05/31/22 04:26 Micro: Microbiology 05/29/22 00:05 Blood Culture - Preliminary Blood NEGATIVE TO DATE 05/29/22 00:00 Blood Culture - Preliminary Blood NEGATIVE TO DATE A&P Assessment and plan (1) Fecal impaction: (2) Acute proctitis: (3) Acute hyponatremia: (4) PAD (peripheral artery disease): (5) Foot ulcer: (6) Dusky feet: (7) Hypertension: (8) Hyperlipidemia: (9) Nausea and vomiting: (10) Cellulitis: Plan 87-year-old female with past medical history of hypertension dyslipidemia, PAD, was admitted for the management of generalized illness, CT scan abdomen and pelvis done in the ER showed:Colonic constipation with possible fecal impaction.Rectal mucosal thickening. This can be seen with a nonspecific proctitis. #Chronic constipation with fecal impaction and stercoral colitis She is currently having bowel movements Started on clear liquid diet this morning, can advance that as tolerated to a full liquid diet later today. Denies any current abdominal pain. No tenderness on abdominal exam today. She is afebrile, hemodynamically stable. lactulose to maintain BM Discontinue IV Unasyn and IV doxycycline. Start p.o. Cipro and Flagyl, will aim for a short course for stercoral colitis. # proctitis: Currently she is on Unasyn. Discontinue the same. Transition to oral Cipro and Flagyl. #Diarrhea possibly overflow incontinence: Stool C. difficile PCR is negative Enteric bacterial panel by PCR negative Likely secondary to stercoral colitis and overflow incontinence. #Hyponatremia: Improving with IV hydration, today at 133 TSH 1.25 Discontinue IV fluids today, encourage p.o. intake, anticipate discharge in the upcoming 24 hours Check BNP with a.m. labs # Bilateral lower extremity cellulitis: This diagnosis appears to be less likely Initially upon admission there was a concern for bilateral lower extremity cellulitis. However on examination today, patient has bilateral purple hue with moving all toes bilaterally. It is symmetric in appearance. This is likely more consistent with either a peripheral artery disease versus possible vasculitis vs Raynaud's. Examination of patient's hand shows similar purplish hue involving her bilateral hands as well. I do not see any overt signs of gangrene. Patient states that her toes have appeared to be the same color with on and off small wounds appearing spontaneously for the last 20 years. She has noticed a difference in coloration with dependency. denies having had any vascular studies in the past. We will check NURIA panel to evaluate for possible vasculitis/Raynaud's phenomenon HAYDEE has been ordered, currently awaited. Keep feet elevated and warm. CT of the foot was ordered, no signs of osteomyelitis, noted degenerative arthritis Discontinue IV Unasyn and IV doxycycline. Will await podiatry recommendations #History of hypertension; Continue losartan and hydrochlorothiazide #Hyperlipidemia Continue Lipitor #History of peripheral artery disease: No acute intervention at this time Full code. SCDs for DVT prophylaxis, heparin subcu Attestations Medical Necessity Statement*: d/c iv abx, change to oral . add lactulose, advance diet, monitor abdominal symptoms and B/L LE with these changes over the next 24 hrs Coding Level of Care Code Acute Code for Chg Fwd Moderate MDM includes number and complexity of problems actively addressed during encounter, amount and/or complexity of data reviewed/ordered and described risk of complication, morbidity or mortality of management as documented Diagnoses Fecal impaction K56.41 Acute proctitis K62.89 Acute hyponatremia E87.1 PAD (peripheral artery disease) I73.9 Foot ulcer L97.509 Dusky feet R23.8 Hypertension I10 Hyperlipidemia E78.5 Nausea and vomiting R11.2 Cellulitis L03.90
[2022-05-31] MEDS: metroNIDAZOLE 500 MG Tablet PO (18:17)
[2022-05-31] MEDS: ciprofloxacin 500 mg Tablet PO (22:06)
[2022-06-01] VITALS: BP 163/79; PULSE 80; RESP 18; TEMP 36.7; O2SAT 98
[2022-06-01 04:00] VITALS: BP 138/83; PULSE 83; RESP 16; TEMP 37; O2SAT 98
[2022-06-01 07:44] LABS: Basophils % 0.6 %; Eosinophils # 0.2 10^3/uL (0.0-0.8); Eosinophils % 2.7 %; Hemoglobin 12.8 g/dL (11.5-15.3); Lymphocytes # 1.1 10^3/uL (0.8-4.8); Lymphocytes % 16.4 %; Mean Corpuscular Hemoglobin 26.5 pg (28.0-34.0); Mean Corpuscular Volume 82.8 fl (81-99); Mean Platelet Volume 10.5 fL (7.4-10.4); Monocytes # 0.6 10^3/uL (0.2-0.9); Monocytes % 8.9 %; Neutrophils # 4.49 10^3/uL (1.8-7.7); Neutrophils % 70.1 %; Nucleated Red Blood Cells % 0 %; Platelet Count 192 10^3/cmm (130-400); Red Blood Count 4.83 10^6/uL (4.1-5.3); Red Cell Distribution Width 15.9 % (12.1-15.1); White Blood Count 6.4 10^3/uL (4.0-10.0)
[2022-06-01 08:00] VITALS: BP 162/75; PULSE 81; RESP 17; TEMP 36.5; O2SAT 98
[2022-06-01 08:06] LABS: Alanine Aminotransferase 27 U/L (0-33); Albumin Level 3.4 g/dL (3.5-5.2); Alkaline Phosphatase 65 U/L (35-105); Anion Gap 15.5 (5-19); Aspartate Amino Transferase 74 U/L (0-32); Blood Urea Nitrogen 11 mg/dL (8-23); Calcium 8.5 mg/dL (8.5-10.5); Carbon Dioxide 25 mmol/L (22-29); Chloride 95 mmol/L (98-107); Globulin 2.7 g/dL (1.3-4.6); Glucose 102 mg/dL (65-115); Osmolality Calculated 274 mOsm/kg (285-295); Potassium 3.5 mmol/L (3.5-5.1); Sodium 132 mmol/L (136-145); Total Bilirubin 0.3 mg/dL (0.15-1.2); Total Protein 6.1 g/dL (6.6-8.7)
[2022-06-01] MEDS: lactulose oral liq 20 gm/30 mL UDC 10 GM PO (08:43)
[2022-06-01] MEDS: TRAMadol 50 mg Tablet PO (08:43)
[2022-06-01 08:44] VITALS: BP 162/75
[2022-06-01] MEDS: ciprofloxacin 500 mg Tablet PO (08:44)
[2022-06-01] MEDS: hydroCHLOROthiazide 25 mg Tablet PO (08:44)
[2022-06-01] MEDS: acetaminophen 325 mg Tablet 650 MG PO ×2 (08:44)
[2022-06-01] MEDS: metroNIDAZOLE 500 MG Tablet PO (08:44)
[2022-06-01] MEDS: amlodipine 10 mg Tablet PO (08:44)
[2022-06-01] MEDS: pantoprazole DR 40 mg Tablet PO (08:44)
[2022-06-01] MEDS: atorvastatin 40 mg Tablet PO (08:44)
[2022-06-01] MEDS: losartan 50 mg Tablet 25 MG PO (08:44)
[2022-06-01] MEDS: timolol 0.5% Op Soln 5 mL Btl 0.5 DROP EYE-BOTH (08:45)
--- NOTE | 2022-06-01 10:11 | PM.DCS ---
Discharge Providers Date of Admission: 05/29/22 21:11 Date of Discharge: June 01, 2022 Attending Provider at Admission: Luz Maria Negrete MD Attending Provider at Discharge: Bella Morales MD Primary Care Provider: Thomas Philippe MD Diagnoses at Discharge Discharge Diagnosis (1) Raynauds phenomenon: Status: Acute Qualifiers: Raynaud?s-associated gangrene presence: without gangrene Qualified Code(s): I73.00 - Raynaud's syndrome without gangrene (2) PAD (peripheral artery disease): Status: Acute Reason for Visit Reason for Visit: [facility] Hospital Course Hospital Course 87-year-old female with past medical history of hypertension dyslipidemia, PAD, was admitted for the management of generalized illness, CT scan abdomen and pelvis done in the ER showed:Colonic constipation with possible fecal impaction.Rectal mucosal thickening. This can be seen with a nonspecific proctitis. #Chronic constipation with fecal impaction and stercoral colitis She is currently having bowel movements. currently on a full liquid diet . advance as tolerated at home . Denies any current abdominal pain. No tenderness on abdominal exam today.? She is afebrile, hemodynamically stable.? lactulose to maintain BM at home. received IV Unasyn and IV doxycycline. changed to p.o. Cipro and Flagyl for remaing 3 days to complete a short course for stercoral colitis for 7 days. #Diarrhea possibly overflow incontinence: Stool C. difficile PCR is negative Enteric bacterial panel by PCR negative Likely secondary to stercoral colitis and overflow incontinence. #Hyponatremia: Improving with IV hydration, today at 132 TSH 1.25 tolerating po fluid itake # Bilateral lower extremity cellulitis: This diagnosis appears to be less likely. Initially upon admission there was a concern for bilateral lower extremity cellulitis.? However on examination, patient has bilateral purple hue involving all toes bilaterally.? It is symmetric in appearance. This is likely more consistent with either microvascular disease versus possible vasculitis vs Raynaud's.? Examination of patient's hand shows similar purplish hue involving her bilateral hands as well. I do not see any overt signs of gangrene. Examined by podiatry, noted to have 2+ anterior tibial pulses. HAYDEE performed Which showed noncompressible ankle vessels bilaterally suggestive of extensive arterial sclerosis. Toe pressures were not obtained. Overall HAYDEE does not seem consistent with her clinical picture. Arterial duplex would be a better diagnostic modality. I offered to order this study as an outpatient and follow-up with podiatry. However patient and her daughter who is currently at bedside report that patient has had similar findings over bilateral toes for over 20 years and at this time they are not currently interested in pursuing any further studies. They will follow-up with her primary care physician should any concerns for worsening foot ulceration or toe discoloration arise. Patient states that her toes have appeared to be the same color with on and off small wounds appearing spontaneously for the last 20 years.? She has noticed a difference in coloration with dependency and seasonal variation. Denies having had any vascular studies in the past. Check NURIA panel to evaluate for possible vasculitis/Raynaud's phenomenon. CT of the foot was ordered, no signs of osteomyelitis, noted degenerative arthritis Discontinued IV Unasyn and IV doxycycline as no further concerns for osteomyelitis. #History of hypertension; Continue losartan and hydrochlorothiazide #Hyperlipidemia Continue Lipitor? #History of peripheral artery disease: No acute intervention at this time Full code. SCDs for DVT prophylaxis, heparin subcu Physical Exam Narrative: General: No acute distress, AO x3 HEENT: PERRLA, pupils bilaterally equal and reactive, pallors not present Chest: Normal vesicular breath sounds, no added sounds, equal good air entry bilaterally CVS: S1-S2 regular, no murmurs, no tachycardia, no gallops, no rubs Abdomen: Soft, nontender, no organomegaly, bowel sounds present Neuro: No focal deficits, no facial deformity, AO x3, power 5/5 in all limbs Extremities: Bilateral purple discoloration involving bilateral toes, not new per patient. Discharge Data Studies Completed and Pending Completed Studies During Hospitalization Category Date Time Status CT abdomen pelvis w con* [id number] Urgent Cat Scan 05/29/22 18:[address] foot LT wo con* [id number] Urgent Cat Scan 05/30/22 05:[address] foot RT wo con* [id number] Urgent Cat Scan 05/30/22 05:53 Completed US HAYDEE [CV ankle brachial index [id number]] Routine Ultrasound 05/31/22 09:01 Completed Pending at discharge Category Date Time Status NURIA Profile Rheumatology AM LABS Lab 06/01/22 07:30 Received Blood Culture Routine Lab 05/29/22 00:05 Results CBC Auto Diff [Complete Blood Count w/Auto] AM LABS Lab 06/02/22 04:00 Ordered CMP [Comprehensive Metabolic Panel] AM LABS Lab 06/02/22 04:00 Ordered Radiology Impressions Abdomen/Pelvis CT 05/29/22 18:50 IMPRESSION: 1. Colonic constipation with possible fecal impaction. 2. Rectal mucosal thickening. This can be seen with a nonspecific proctitis. Follow-up to exclude neoplasm as clinically warranted. Foot CT 05/30/22 05:53 IMPRESSION: 1. Diffuse soft tissue edema or cellulitis. 2. Generalized degenerative arthritis. 3. For any clinical concern for bone infection or soft tissue abscess consider MRI without and with gadolinium. Laboratory Results WBC 6.4 10^3/uL (4.0-10.0) 06/01/22 07:30 RBC 4.83 10^6/uL (4.1-5.3) 06/01/22 07:30 Hgb 12.8 g/dL (11.5-15.3) 06/01/22 07:30 Hct 40.0 % (37.0-47.0) 06/01/22 07:30 MCV 82.8 fl (81-99) 06/01/22 07:30 MCH 26.5 pg (28.0-34.0) L 06/01/22 07:30 MCHC 32.0 g/dL (30.0-36.0) 06/01/22 07:30 RDW 15.9 % (12.1-15.1) H 06/01/22 07:30 Plt Count 192 10^3/cmm (130-400) 06/01/22 07:30 MPV 10.5 fL (7.4-10.4) H 06/01/22 07:30 Neut % (Auto) 70.1 % 06/01/22 07:30 Lymph % (Auto) 16.4 % 06/01/22 07:30 [place] % (Auto) 8.9 % 06/01/22 07:30 Eos % (Auto) 2.7 % 06/01/22 07:30 Baso % (Auto) 0.6 % 06/01/22 07:30 Neut # (Auto) 4.49 10^3/uL (1.8-7.7) 06/01/22 07:30 Lymph # (Auto) 1.1 10^3/uL (0.8-4.8) 06/01/22 07:30 [place] # (Auto) 0.6 10^3/uL (0.2-0.9) 06/01/22 07:30 Eos # (Auto) 0.2 10^3/uL (0.0-0.8) 06/01/22 07:30 Baso # (Auto) 0.0 10^3/uL (0.0-0.1) 06/01/22 07:30 Nucleated RBC % (auto) 0 % 06/01/22 07:30 Nucleated RBCs # 0.0 /100WBC 06/01/22 07:30 Sodium 132 mmol/L (136-145) L 06/01/22 07:30 Potassium 3.5 mmol/L (3.5-5.1) 06/01/22 07:30 Chloride 95 mmol/L (98-107) L 06/01/22 07:30 Carbon Dioxide 25 mmol/L (22-29) 06/01/22 07:30 Anion Gap 15.5 (5-19) 06/01/22 07:30 BUN 11 mg/dL (8-23) 06/01/22 07:30 Creatinine 1.1 mg/dL (0.5-0.9) H 06/01/22 07:30 GFR Calculation Not Reportable 06/01/22 07:30 Glucose 102 mg/dL (65-115) 06/01/22 07:30 Calculated Osmolality 274 mOsm/kg (285-295) L 06/01/22 07:30 Lactic Acid 1.0 mmol/L (0.5-2.2) 05/29/22 00:00 Calcium 8.5 mg/dL (8.5-10.5) 06/01/22 07:30 Magnesium 1.5 mg/dL (1.7-2.3) L 05/30/22 02:05 Total Bilirubin 0.3 mg/dL (0.15-1.2) 06/01/22 07:30 AST 74 U/L (0-32) H 06/01/22 07:30 ALT 27 U/L (0-33) 06/01/22 07:30 Alkaline Phosphatase 65 U/L (35-105) 06/01/22 07:30 Total Protein 6.1 g/dL (6.6-8.7) L 06/01/22 07:30 Albumin 3.4 g/dL (3.5-5.2) L 06/01/22 07:30 Globulin 2.7 g/dL (1.3-4.6) 06/01/22 07:30 Lipase 30 U/L (13-60) 05/29/22 17:13 Procalcitonin 0.26 ng/mL (0-0.5) 05/29/22 17:13 TSH 1.25 uIU/mL (0.27-4.20) 05/29/22 17:13 Urine Color Colorless (Yellow) 05/29/22 19:30 Urine Appearance Clear (CLEAR) 05/29/22 19:30 Urine pH 7 (5-7) 05/29/22 19:30 Ur Specific [place] 1.005 (1.005-1.030) 05/29/22 19:30 Urine Protein Neg (Negative) 05/29/22 19:30 Urine Glucose (UA) Norm (Normal) 05/29/22 19:30 Urine Ketones Negative (Negative) 05/29/22 19:30 Urine Blood Neg (Negative) 05/29/22 19:30 Urine Nitrate Negative (Negative) 05/29/22 19:30 Urine Bilirubin Neg (Negative) 05/29/22 19:30 Urine Urobilinogen Norm mg/dL (Negative) 05/29/22 19:30 Ur Leukocyte Esterase Negative (Negative) 05/29/22 19:30 Vitals Last Vital Signs Temp 97.7 F 06/01/22 08:00 Pulse 81 06/01/22 08:00 Resp 17 06/01/22 08:00 BP 162/75 06/01/22 08:44 Pulse Ox 98 06/01/22 08:00 O2 Del Method Room Air 05/31/22 11:35 O2 Flow Rate 1 05/29/22 23:00 Discharge Plan Discharge Patient Disposition: Home Condition: Stable Prescriptions: New metronidazole 500 mg Tablet 500 mg PO BID 30 Days Qty: 60 0RF ciprofloxacin HCl 500 mg Tablet 500 mg PO BID@0900,2100 3 Days Qty: 6 0RF mupirocin 2 % Ointment 1 applic topical BID 30 Days Qty: 30 0RF lactulose 20 gram/30 mL Solution 10 g PO BID PRN (Reason: constipation) 30 Days Qty: 60 0RF Continued Alphagan P 0.1 % drops 0.1 drp ophthalmic (eye) TID Rx Instructions: both eyes latanoprost 0.005 % drops 0.005 drp ophthalmic (eye) BEDTIME Rx Instructions: both eyes timolol maleate 0.5 % drops 1 drp ophthalmic (eye) BID Rx Instructions: both eyes simvastatin 80 mg tablet 80 mg PO DAILY meloxicam 7.5 mg tablet 7.5 mg PO DAILY hydrochlorothiazide 25 mg tablet 25 mg PO DAILY losartan 25 mg tablet 25 mg PO DAILY omeprazole 40 mg capsule,delayed release(DR/EC) 40 mg PO DAILY metoprolol succinate 200 mg tablet extended release 24 hr 200 mg PO DAILY tramadol 50 mg tablet 25 - 50 mg PO BID PRN (Reason: Pain) Patient Comments: Patient takes 1 in the morning and one before bedtime. metoprolol succinate 200 mg tablet extended release 24 hr 200 mg PO DAILY ondansetron 4 mg tablet,disintegrating 4 mg PO Q6H PRN (Reason: nausea and vomiting) Qty: 14 0RF Discharge Orders: Discharge Order (Routine); Ordered 06/01/22 Ordered By: Bella Morales Referrals: Thomas Philippe MD [Primary Care Provider] - 06/09/22 8:30 am Discharge Diet: Usual diet Discharge Activity: Resume usual activity Patient Instructions: Opioid Safety Discharge Attestations Time Spent in Discharge Care*: greater than 30 min Quality Metrics Clinical Quality Measures [ No reported AMI, CVA or VTE this stay] Coding Level of Care Code Acute Code for Chg Fwd Diagnoses Raynauds phenomenon I73.00 Raynaud?s-associated gangrene presence: without gangrene PAD (peripheral artery disease) I73.9
--- NOTE | 2022-06-01 11:25 | PC.SOCIAL ---
IMM Update pg 2 of IMM updated and reviewed w/ patient. Copy provided and copy dated, initialed and placed in chart.
--- NOTE | 2022-06-01 11:58 | PC.NURSE ---
Educated patient on the importance of wearing socks even if her feet feel warm. Patient states that she can't that it is too uncomfortable. Explained the restriction in the vessels causing the coldness in the extremity and the feeling of warmth, but patient needs reinforced teaching and will be non-compliant due to comfort. Explained the importance of wearing socks and gloves in the winter and colder weather as well. Patient stated her understanding.
--- NOTE | 2022-06-01 12:01 | PC.NURSE ---
Discharge Note Patient discharged to home via private vehicle accompanied by daughter. 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 Mobile pharmacy medications and/or prescriptions provided. Belongings/home medications returned. Cleansed toe wounds with normal saline and applied mupirocin ointment to left second third and fourth toes and right second toe then applied bandaids. Gave patient home medications and ointment at discharge.
[2022-06-01 12:24] VITALS: BP 162/75
[2022-06-02 11:54] LABS: COMPLEMENT COMPONENT C3C 99 mg/dL; COMPLEMENT COMPONENT C4C 20 mg/dL
[2022-06-02 13:16] LABS: COMPLEMENT, TOTAL (CH50) 59 U/mL (31-60)
[2022-06-02 15:04] LABS: CENTROMERE B ANTIBODY >8.0 POS AI (<1.0 NEG); JO-1 ANTIBODY <1.0 NEG AI (<1.0 NEG); RNP ANTIBODY <1.0 NEG AI (<1.0 NEG); SCL-70 ANTIBODY <1.0 NEG AI (<1.0 NEG); SJOGREN'S ANTIBODY (SS-A) <1.0 NEG AI (<1.0 NEG); SM ANTIBODY <1.0 NEG AI (<1.0 NEG); SS-B <1.0 NEG AI (<1.0 NEG)
[2022-06-02 17:04] LABS: THYROID PEROXIDASE ANTIBODIES 2 IU/mL (<9)
[2022-06-03 10:48] LABS: ANA PATTERN Nuclear, Centromere; ANA SCREEN, IFA POSITIVE (NEGATIVE)
[2022-06-08 13:39] LABS: DNA AB (DS) CRITHIDIA,IFA NEGATIVE (NEGATIVE)
== END 2022-06-01 12:25 | disposition home or self-care (01) | DRG 389 ==
LOC: ER 21:17 → ER IP 21:26 → MEDSURG 05-30 05:54
PROVIDERS: Emergency Medicine; Internal Medicine; Admitting Provider Internal Medicine; Emergency Provider Emergency Medicine; PCP Family Medicine; Visit Provider Student in an Organized Health Care Education/Training Program
DX: K56.41 Fecal impaction (principal); E87.1 Hypo-osmolality and hyponatremia; K52.89 Other specified noninfective gastroenteritis and colitis; K62.89 Other specified diseases of anus and rectum; R19.7 Diarrhea, unspecified; I73.00 Raynaud's syndrome without gangrene; I73.9 Peripheral vascular disease, unspecified; I10 Essential (primary) hypertension; E78.5 Hyperlipidemia, unspecified; E86.0 Dehydration; R11.2 Nausea with vomiting, unspecified; L97.521 Non-pressure chronic ulcer of other part of left foot limited to breakdown of skin; L97.511 Non-pressure chronic ulcer of other part of right foot limited to breakdown of skin
CPT/HCPCS: 36415; 73700; 74177; 80053; 81003; 82274; 83605; 83630; 83690; 83735; 84145; 84443; 85025; 86160; 86162; 86235; 86255; 86376; 87040; 87493; 87506; 93922; 94664; 96365; 96372; 96375; 99285; C9113; J0295; J0360; J1644; J2270; J3010; J3490; J7030; Q9967